=== PATIENT | male | born 1945 | race Caucasian/White ===

== ENCOUNTER 2025-01-01 09:15 | Emergency (ER) | payer MEDICARE ==
[~2025-01-01] VITALS: Ht 172.7 cm; Wt 90.7 kg
[2025-01-01 10:12] LABS: BASOPHILS ABSOLUTE AUTO 0.02 K/mm3 (0.00-0.23); BASOPHILS PERCENT AUTO 0 % (0-2); EOSINOPHILS ABSOLUTE AUTO 0.15 K/mm3 (0.00-0.68); EOSINOPHILS PERCENT AUTO 3 % (0-6); Hematocrit 45.5 % (37.0-53.0); Hemoglobin 14.6 g/dL (13.5-17.5); IMMATURE GRAN ABSOLUTE AUTO 0.02 K/mm3 (0.00-0.10); IMMATURE GRAN PERCENT AUTO 0 % (0-1); LYMPHOCYTES ABSOLUTE AUTO 1.16 K/mm3 (0.84-5.20); LYMPHOCYTES PERCENT AUTO 21 % (21-46); MONOCYTES ABSOLUTE AUTO 0.46 K/mm3 (0.16-1.47); MONOCYTES PERCENT AUTO 9 % (4-13); Mean Corpuscular HGB Conc 32.1 g/dL (31.5-36.5); Mean Corpuscular Volume 100 fL (80-100); NEUTROPHILS ABSOLUTE AUTO 3.63 K/mm3 (1.96-9.15); NEUTROPHILS PERCENT AUTO 67 % (41-73); NRBC ABSOLUTE 0.00 K/mm3 (0.00-0.02); NRBC Auto 0.0 /100 WBC (0.0-0.2); Platelet Count 149 K/mm3 (150-400); RDW Coefficient Variation 15.7 % (11.7-14.2); RDW Standard Deviation 56.7 fL (35.1-46.3)
[2025-01-01] MEDS ORDERED: MULVITA PO (10:32)
[2025-01-01] MEDS ORDERED: CINNAMON EXTRA500 MG PO (10:33)
[2025-01-01] MEDS ORDERED: Garlic500 MG PO (10:33)
[2025-01-01] MEDS ORDERED: Aspir 8181 MG PO (10:33)
[2025-01-01] MEDS ORDERED: GRAPE SEED EXTRACT PO (10:33)
[2025-01-01 10:34] LABS: Alanine Aminotransfer (ALT/SGP 24.0 U/L (12-78); Albumin, Blood 3.6 g/dL (3.4-5.0); Albumin/Globulin Ratio 0.9 (0.8-1.8); Anion Gap 9.0 mmol/L (3-11); Aspartate Aminotrans (AST/SGOT 13.0 U/L (12-37); Bilirubin, Total 1.2 mg/dL (0.1-1.0); Blood Urea Nitrogen 18.0 mg/dL (8-24); CO2, Blood 28.0 mmol/L (21-32); Calcium, Blood 8.8 mg/dL (8.5-10.1); Chloride, Blood 103.0 mmol/L (98-108); Creatinine, Blood 0.99 mg/dL (0.60-1.20); Globulin, Blood 3.8 g/dL (2.2-4.0); Glucose, Blood 264.0 mg/dL (70-99); Potassium, Blood 4.2 mmol/L (3.5-5.5); Sodium, Blood 136.0 mmol/L (136-145); Total Protein, Blood 7.4 g/dL (6.4-8.2)
[2025-01-01] MEDS ORDERED: METF500 PO (10:34)
[2025-01-01] MEDS ORDERED: LEVOTHYROXINE100 M10 PO (10:34)
[2025-01-01] MEDS ORDERED: GLIM4 PO (10:34)
[2025-01-01] MEDS ORDERED: FISH OIL 1,0001 EA10 PO (10:34)
[2025-01-01] MEDS ORDERED: JARDIANCE25 MG PO (10:35)
[2025-01-01] MEDS ORDERED: Lovastatin20 MG PO (10:35)
[2025-01-01] MEDS ORDERED: CARV6.25 PO (10:35)
[2025-01-01] MEDS ORDERED: FURO20 PO (11:28)
[2025-01-01] MEDS ORDERED: POTA10T PO (11:28)
[2025-01-01] MEDS ORDERED: Furosemide 10 MG / ML 2ML Vial IV ONE (11:30)
== END 2025-01-01 11:45 | disposition home or self-care (01) ==
LOC: ER 09:15
PROVIDERS: Student in an Organized Health Care Education/Training Program
DX: I50.9 Heart failure, unspecified (principal); Z95.0 Presence of cardiac pacemaker; Z79.899 Other long term (current) drug therapy; Z79.82 Long term (current) use of aspirin; Z79.84 Long term (current) use of oral hypoglycemic drugs
CPT/HCPCS: 71046; 80053; 83880; 84484; 85025; 93005; 93010; 96374; 99285-25; J1938

== ENCOUNTER 2025-01-28 14:49 | Inpatient (IN) | payer MEDICARE ==
[~2025-01-28] VITALS: Ht 172.7 cm; Wt 94.1 kg
[~2025-01-28 14:49] MED LIST: Aspir 8181 MG PO; CARV6.25 PO; CINNAMON EXTRA500 MG PO; FISH OIL 1,0001 EA10 PO; FURO20 PO; GLIM4 PO; GRAPE SEED EXTRACT PO; Garlic500 MG PO; JARDIANCE25 MG PO; LEVOTHYROXINE100 M10 PO; Lovastatin20 MG PO; METF500 PO; MULVITA PO; POTA10T PO
[2025-01-28 15:52] LABS: BASOPHILS ABSOLUTE AUTO 0.04 K/mm3 (0.00-0.23); BASOPHILS PERCENT AUTO 1 % (0-2); EOSINOPHILS ABSOLUTE AUTO 0.14 K/mm3 (0.00-0.68); EOSINOPHILS PERCENT AUTO 3 % (0-6); Hematocrit 44.3 % (37.0-53.0); Hemoglobin 14.0 g/dL (13.5-17.5); IMMATURE GRAN ABSOLUTE AUTO 0.02 K/mm3 (0.00-0.10); IMMATURE GRAN PERCENT AUTO 0 % (0-1); LYMPHOCYTES ABSOLUTE AUTO 1.07 K/mm3 (0.84-5.20); LYMPHOCYTES PERCENT AUTO 20 % (21-46); MONOCYTES ABSOLUTE AUTO 0.55 K/mm3 (0.16-1.47); MONOCYTES PERCENT AUTO 10 % (4-13); Mean Corpuscular HGB Conc 31.6 g/dL (31.5-36.5); Mean Corpuscular Volume 102 fL (80-100); NEUTROPHILS ABSOLUTE AUTO 3.67 K/mm3 (1.96-9.15); NEUTROPHILS PERCENT AUTO 67 % (41-73); NRBC ABSOLUTE 0.00 K/mm3 (0.00-0.02); NRBC Auto 0.0 /100 WBC (0.0-0.2); Platelet Count 149 K/mm3 (150-400); RDW Coefficient Variation 15.9 % (11.7-14.2); RDW Standard Deviation 59.5 fL (35.1-46.3)
[2025-01-28 16:43] LABS: Alanine Aminotransfer (ALT/SGP 27.0 U/L (12-78); Albumin, Blood 3.6 g/dL (3.4-5.0); Albumin/Globulin Ratio 0.9 (0.8-1.8); Anion Gap 6.0 mmol/L (3-11); Aspartate Aminotrans (AST/SGOT 21.0 U/L (12-37); Bilirubin, Total 1.0 mg/dL (0.1-1.0); Blood Urea Nitrogen 20.0 mg/dL (8-24); CO2, Blood 29.0 mmol/L (21-32); Calcium, Blood 8.6 mg/dL (8.5-10.1); Chloride, Blood 106.0 mmol/L (98-108); Creatinine, Blood 1.05 mg/dL (0.60-1.20); Globulin, Blood 3.8 g/dL (2.2-4.0); Glucose, Blood 234.0 mg/dL (70-99); Potassium, Blood 4.2 mmol/L (3.5-5.5); Sodium, Blood 137.0 mmol/L (136-145); Total Protein, Blood 7.4 g/dL (6.4-8.2)
[2025-01-28] MEDS ORDERED: Albuterol Soln 2.5 MG/0.5 ML UD INH SCH (21:50)
[2025-01-28] MEDS ORDERED: Albuterol Soln 2.5 MG/0.5 ML UD INH ONE (22:20)
[2025-01-29 02:29] VITALS: BP 150/88
--- NOTE | 2025-01-29 03:21 | NUR ---
PATIENT IS A NEW ADMIT FROM THE ED. ALERT ORIENTED AND ARRIVED VIA W/C WITH INDEPENDENT TRANSFER TO BED. DENIES CHEST PAIN, SOB, AND N/V. VSS/AFEBRILE. TELEMETRY PLACED V-PACED 70. ON ROOM AIR. REPORTS USES CPAP AT NIGHT BUT REFUSING ONE AT THIS TIME. IV LASIX GIVEN IN ED SO PATIENT UP TO BR. CAT SCRATCHES TO BLE. ORIENTED TO ROOM AND CALL LIGHT. REPORTS WANTS TO SLEEP AFTER ASSESSMENT. WCTM.
[2025-01-29 07:42] VITALS: BP 146/81
[2025-01-29] MEDS ORDERED: Enoxaparin 40 MG/0.4 ML SYR SC SCH (09:00)
[2025-01-29] MEDS ORDERED: Potassium Chloride 10 Meq Tablet SA PO SCH (09:00)
[2025-01-29 11:30] VITALS: BP 133/76
[2025-01-29] MEDS ORDERED: Insulin Regular 100 UNIT/ML 10ML Vial SC SCH (11:30)
[2025-01-29 17:06] VITALS: BP 139/80
--- NOTE | 2025-01-29 18:19 | NUR ---
A&OX4, INDEP IN ROOM, DENIES PAIN, HAS BEEN ELEVATING BLE THIS SHIFT, VSS, TELE PACED 69, BEDRESTING AT THIS TIME, CALL LIGHT IN REACH, WILL CONT TO MONITOR UNTIL REPORT GIVEN TO ONCOMING NURSE.
[2025-01-29 20:34] VITALS: BP 135/73
[2025-01-30 01:09] VITALS: BP 107/69
[2025-01-30 05:06] VITALS: BP 120/75
--- NOTE | 2025-01-30 06:35 | NUR ---
SHIFT SUMMARY PT ALERT ORIENTED X 4 ABLE TO VERBALIZE NEEDS GETS UP AND AMBULATES IN ROOM AD MAYLIN WITH NO PROBLEMS. NO C/O SOB THIS SHIFT. REMAINS ON AUGMENTIN BID ORDERED FOR BRONCHITIS CONTINUES ON STRICT I&OS VSS ON RA DURING DAY AND CPAP AND 6L O2 AT NOC. REMAINS ON A CONT PULSE OX. REMAINS ON TELEMETRY AT VPACED AT 70. CONTINUES ON LASIX BID WITH GOOD OUTPUT. DOES HAVE EDEMA TO BLE. RESTING IN BED AT THIS TIME WITH CALL LIGHT IN REACH
[2025-01-30 08:58] VITALS: BP 120/75
[2025-01-30 09:53] VITALS: BP 124/62
[2025-01-30 16:09] VITALS: BP 133/84
--- NOTE | 2025-01-30 17:47 | NUR ---
SHIFT SUMMARY- PT ALERT AND ORIENTED INDEPENDENT IN THE ROOM AND HALLS. HE IS CURRENTLY ON IV LASIX BID. PLAN IS TO DC THE PT HOME TOMORROW HIS SPOUSE WILL BE IN TOWN FOR HER DIALYSIS Tx, PT STATES SHE WILL BE DONE AROUND 1430 TOMORROW AND CAN PICK HIM UP AT THAT TIME. PT HAS BEEN UP INDEPENDENT IN THE HALLS T/O THE DAY TODAY LAUGHING AND TALKING WITH STAFF. TELE DC'D TODAY PT HAS A PACER AND THE RATE HAS BEEN 70BPM ALL DAY. PT IS VERY PLEASENT, AND CAN MAKE HIS NEEDS KNOWN.
[2025-01-30 19:24] VITALS: BP 132/77
[2025-01-31 03:37] VITALS: BP 119/72
--- NOTE | 2025-01-31 04:06 | NUR ---
[employer] SUMMARY PT A&OX4, VSS. PT HAS BEEN ASLEEP FOR THE MAJORITY OF THE SHIFT. CHEST RISE/RESPIRATIONS NOTED. PT UP AD MAYLIN. GETS UP TO RESTROOM INDEPENDENTLY. ON LASIX BID. 1+ MINIMAL EDEMA STILL NOTED IN BLE. PT REMAINS ON STRICT I&O'S W/ A GOOD AMOUNT OF OUTPUT. NO C/O SOB OR CHEST PAIN/DISCOMFORT/TIGHTNESS THIS SHIFT. PT ON HOME CPAP AT NIGHT W/ 6L 02 BLED IN & CONTINUOUS PULSE OX. RA OTHERWISE. BED RAILS UP X 2, BED IN LOWEST POSITION, BED WHEELS LOCKED, PERSONAL BELONGINGS AND CALL LIGHT WITHIN REACH FOR SAFETY.
[2025-01-31 05:03] LABS: BASOPHILS ABSOLUTE AUTO 0.04 K/mm3 (0.00-0.23); BASOPHILS PERCENT AUTO 1 % (0-2); EOSINOPHILS ABSOLUTE AUTO 0.18 K/mm3 (0.00-0.68); EOSINOPHILS PERCENT AUTO 3 % (0-6); Hematocrit 43.9 % (37.0-53.0); Hemoglobin 14.1 g/dL (13.5-17.5); IMMATURE GRAN ABSOLUTE AUTO 0.02 K/mm3 (0.00-0.10); IMMATURE GRAN PERCENT AUTO 0 % (0-1); LYMPHOCYTES ABSOLUTE AUTO 1.20 K/mm3 (0.84-5.20); LYMPHOCYTES PERCENT AUTO 21 % (21-46); MONOCYTES ABSOLUTE AUTO 0.77 K/mm3 (0.16-1.47); MONOCYTES PERCENT AUTO 14 % (4-13); Mean Corpuscular HGB Conc 32.1 g/dL (31.5-36.5); Mean Corpuscular Volume 99 fL (80-100); NEUTROPHILS ABSOLUTE AUTO 3.42 K/mm3 (1.96-9.15); NEUTROPHILS PERCENT AUTO 61 % (41-73); NRBC ABSOLUTE 0.00 K/mm3 (0.00-0.02); NRBC Auto 0.0 /100 WBC (0.0-0.2); Platelet Count 165 K/mm3 (150-400); RDW Coefficient Variation 15.6 % (11.7-14.2); RDW Standard Deviation 56.1 fL (35.1-46.3)
[2025-01-31 05:23] LABS: Anion Gap 8.0 mmol/L (3-11); Blood Urea Nitrogen 27.0 mg/dL (8-24); CO2, Blood 34.0 mmol/L (21-32); Calcium, Blood 8.8 mg/dL (8.5-10.1); Chloride, Blood 99.0 mmol/L (98-108); Creatinine, Blood 1.32 mg/dL (0.60-1.20); Glucose, Blood 195.0 mg/dL (70-99); Magnesium, Blood 2.5 mg/dL (1.6-2.4); Potassium, Blood 3.6 mmol/L (3.5-5.5); Sodium, Blood 137.0 mmol/L (136-145)
[2025-01-31 07:48] VITALS: BP 130/107
[2025-01-31] MEDS ORDERED: AMOCLA500 PO (13:49)
--- NOTE | 2025-01-31 15:56 | NUR ---
DISCHARGE SUMMARY PATIENT DISCHARGED HOME WITH DAUGHTER IN LAW TO DRIVE. A/O X4. IV REMOVED WITHOUT COMPLICATION. DISCHARGE PACKET GIVEN AND REVIEWED, QUESTIONS ANSWERED, VERBALIZED UNDERSTANDING.
== END 2025-01-31 15:05 | disposition home or self-care (01) | DRG 189 ==
LOC: ER 14:49 → MEDS 14:50
PROVIDERS: Internal Medicine; Student in an Organized Health Care Education/Training Program; ADMIT Student in an Organized Health Care Education/Training Program
DX: J96.01 Acute respiratory failure with hypoxia (principal); I25.10 Atherosclerotic heart disease of native coronary artery without angina pectoris; I27.20 Pulmonary hypertension, unspecified; I10 Essential (primary) hypertension; E03.9 Hypothyroidism, unspecified; I08.1 Rheumatic disorders of both mitral and tricuspid valves; E78.5 Hyperlipidemia, unspecified; E11.65 Type 2 diabetes mellitus with hyperglycemia; J40 Bronchitis, not specified as acute or chronic; Z79.899 Other long term (current) drug therapy; Z79.82 Long term (current) use of aspirin; Z79.84 Long term (current) use of oral hypoglycemic drugs; Z79.890 Hormone replacement therapy; Z90.49 Acquired absence of other specified parts of digestive tract; Z95.1 Presence of aortocoronary bypass graft
CPT/HCPCS: 36415; 71046; 71260; 80048; 80053; 82947; 83690; 83735; 83880; 84484; 85025; 93005; 93010; 93306; 94762; 96372; 96374-59; 96376; 97112; 97116; 97161; 97530; 99285-25; A9270; G0378; J1650; J1815; J1938; Q9967